=== PATIENT | female | born 1935 | race Asian ===

== ENCOUNTER 2021-05-09 20:45 | Emergency (ER) | payer MEDICAID ==
[~2021-05-09] VITALS: Ht 157.5 cm; Wt 59.0 kg
--- NOTE | 2021-05-09 21:30 | NUR ---
PT BIBGRANDSON C/O GEN BODY RASH X2 WEEKS, FEELING WORSE TODAY. PT AAOX4 BREATHING EVENLY AND UNLABORED. PT ATTACHED TO MONITOR AND POX. [facility] AT BEDSIDE FOR TRANSLATION. PT CHANGED INTO GOWN AND GIVEN BLANKET AND CALL LIGHT WITHIN REACH
[2021-05-09] MEDS ORDERED: diphenhydrAMINE HCL 25 MG CAPSULE PO ONE (22:30)
[2021-05-09] MEDS ORDERED: diphenhydrAMINE HCL 25 MG CAPSULE ONE (22:33)
--- NOTE | 2021-05-09 22:38 | NUR ---
LAB AT BEDSIDE
[2021-05-09 22:59] LABS: HEMATOCRIT 39 % (33-45); HEMOGLOBIN 12.3 g/dL (11.5-14.8); LYMPHOCYTES # (AUTO) 0.7 K/uL (0.8-4.8); MEAN CORPUSCULAR HGB CONC 32 g/dl (31.0-36.0); MEAN CORPUSCULAR VOLUME 79 fL (82-100); MONOCYTES # (AUTO) 0.2 K/uL (0.1-1.30); MONOCYTES % (AUTO) 4.3 % (2.0-12.0); NEUTROPHILS # (AUTO) 3.6 K/uL (1.8-8.9); NEUTROPHILS % (AUTO) 79.7 % (43.0-81.0); PLATELET COUNT (AUTO) 380 K/uL (150-450); RED BLOOD CELL COUNT(AUTO) 4.88 MIL/uL (4.0-5.2); WHITE BLOOD COUNT (AUTO) 4.6 K/uL (4.3-11.0)
[2021-05-09 23:28] LABS: ALANINE AMINOTRANSFERASE 37 U/L (12-78); ALBUMIN 3.9 g/dL (3.4-5.0); ALKALINE PHOSPHATASE 66 U/L (46-116); ASPARTATE AMINOTRANSFERASE 19 U/L (15-37); BILIRUBIN,TOTAL 0.3 mg/dL (0.2-1.0); CALCIUM, SERUM 8.5 mg/dL (8.5-10.1); CARBON DIOXIDE 27 mmol/L (21-32); CHLORIDE 99 mmol/L (98-107); CREATININE 1.2 mg/dL (0.6-1.3); POTASSIUM 4.4 mmol/L (3.5-5.1); SODIUM SERUM 136 mmol/L (136-145); TOTAL PROTEIN, SERUM 8.1 g/dL (6.4-8.2); UREA NITROGEN, BLOOD 21 mg/dL (7-18)
[2021-05-09 23:34] LABS: GLUCOSE 388 mg/dL (74-106)
--- NOTE | 2021-05-09 23:34 | NUR ---
PER LAB, GLUCOSE [id number]
[2021-05-09] MEDS ORDERED: INSULIN REGULAR, HUMAN 100 UNIT/ML 10 ML VIAL ONE (23:49)
[2021-05-09] MEDS ORDERED: TERB250T52 PO (23:55)
[2021-05-09] MEDS ORDERED: DIPH-530 PO (23:55)
[2021-05-10] MEDS ORDERED: IV NS 0.9% 500 ML IV ONE
[2021-05-10] MEDS ORDERED: INSULIN REGULAR, HUMAN 100 UNIT/ML 10 ML VIAL SQ ONE
--- NOTE | 2021-05-10 01:03 | NUR ---
bg [id number]
--- NOTE | 2021-05-10 01:05 | NUR ---
Patient discharged to home in stable condition. Written and verbal after care instructions given. Patient verbalizes understanding of instruction. IV removed. Catheter intact and site benign. Pressure and 4x4 applied to site. No bleeding noted. pt ambulatory with a steady gait. pt taken home by [facility]
[2021-05-10 01:14] VITALS: BP 140/85
== END 2021-05-10 01:05 | disposition home or self-care (01) ==
LOC: ER 20:45
DX: R21 Rash and other nonspecific skin eruption (principal); E11.65 Type 2 diabetes mellitus with hyperglycemia; I10 Essential (primary) hypertension
CPT/HCPCS: 36415; 80053; 85025; 96360; 96372; 99285; J1815; J7040; Q0163

== ENCOUNTER 2024-06-23 23:29 | Emergency (ER) | payer MEDICAID ==
[~2024-06-23] VITALS: Ht 149.9 cm; Wt 49.9 kg
[~2024-06-23 23:29] MED LIST: DIPH-530 PO; TERB250T52 PO
[2024-06-24] MEDS: MECLIZINE HCL 12.5 MG TABLET PO ONE
[2024-06-24] MEDS: METOCLOPRAMIDE HCL 10 MG/2 ML VIAL IV ONE
[2024-06-24] MEDS ORDERED: hydrALAZINE HCL IV 20 MG VIAL ONE ×2 (00:05→01:55)
[2024-06-24] MEDS ORDERED: METOCLOPRAMIDE HCL 10 MG/2 ML VIAL ONE (00:06)
[2024-06-24] MEDS ORDERED: MECLIZINE HCL 25 MG TABLET ONE (00:06)
[2024-06-24 00:12] LABS: BASOPHILS % (AUTO) 0.5 % (0.0-2.0); EOSINOPHILS % (AUTO) 0.5 % (0.0-6.0); HEMATOCRIT 36 % (33-45); HEMOGLOBIN 11.8 g/dL (11.5-14.8); LYMPHOCYTES # (AUTO) 1.6 K/uL (0.8-4.8); LYMPHOCYTES % (AUTO) 37.2 % (20.0-44.0); MEAN CORPUSCULAR HEMOGLOBIN 26 PG (26.0-33.0); MEAN CORPUSCULAR HGB CONC 33 g/dl (31.0-36.0); MEAN CORPUSCULAR VOLUME 80 fL (82-100); MONOCYTES # (AUTO) 0.5 K/uL (0.1-1.30); MONOCYTES % (AUTO) 10.6 % (2.0-12.0); NEUTROPHILS # (AUTO) 2.3 K/uL (1.8-8.9); NEUTROPHILS % (AUTO) 51.2 % (43.0-81.0); PLATELET COUNT (AUTO) 256 K/uL (150-450); RED BLOOD CELL COUNT(AUTO) 4.52 MIL/uL (4.0-5.2); RED CELL DISTRIBUTION WIDTH 13.2 % (11.5-15.0); WHITE BLOOD COUNT (AUTO) 4.4 K/uL (4.3-11.0)
[2024-06-24 00:28] LABS: CALCIUM, SERUM 9.1 mg/dL (8.5-10.1); CREATININE 1.2 mg/dL (0.6-1.3); POTASSIUM 3.7 mmol/L (3.5-5.1)
[2024-06-24 00:34] LABS: ALBUMIN 3.7 g/dL (3.4-5.0); BILIRUBIN,TOTAL 0.6 mg/dL (0.2-1.0); TOTAL PROTEIN, SERUM 8.3 g/dL (6.4-8.2)
[2024-06-24] MEDS: hydrALAZINE HCL IV 20 MG VIAL IV ONE ×2 (01:58)
[2024-06-24] MEDS ORDERED: MECL-159 PO (02:13)
[2024-06-24] MEDS ORDERED: ONDA4TAB5 PO (02:13)
[2024-06-24 03:41] VITALS: BP 178/61; TEMP 98.2; O2SAT 98
== END 2024-06-24 03:42 | disposition home or self-care (01) ==
LOC: ER 23:31
DX: I10 Essential (primary) hypertension (principal); R42 Dizziness and giddiness; R11.2 Nausea with vomiting, unspecified; E11.9 Type 2 diabetes mellitus without complications; E78.5 Hyperlipidemia, unspecified
CPT/HCPCS: 99285; 93005 ×2; 36415; 96374; 70450; 96375; 96376; 85025; 80053; 84484; J8597; J0360 ×2; J2765; A4223